=== PATIENT | female | born 1990 ===

== ENCOUNTER 2018-09-21 00:47 | Emergency (ER) | payer OTHER ==
[2018-09-21 01:08] VITALS: BMI 20.3
[2018-09-21 01:13] VITALS: RESP 18
[2018-09-21] MEDS ORDERED: Sodium Chloride 0.9% 1,000 ML IV STA (01:43)
--- NOTE | 2018-09-21 01:48 | ED PDOC ---
HPI: Abdomen Time Seen by Provider: 09/21/18 01:27 Chief Complaint (Nursing): Abdominal Pain Chief Complaint (Provider): Abdominal Pain History Per: Patient History/Exam Limitations: no limitations Onset/Duration Of Symptoms: Days Outside of [place] travel?: No Current Symptoms Are (Timing): Still Present Additional Complaint(s): 28 y/o female presents to the ED for evaluation of abdominal pain, onset 4 hours prior to arrival. Patient reports of having elective termination on 08/24 and has been experiencing continuous vaginal bleeding since. Patient reports bleeding is like her normal periods. Patient additionally reports of noticing bleeding began to be foul smelling approximately 2 days ago. Patient states she used a cream prescribed to her by her PMD used to treat a bacterial infection in the past. Patient reports of developing worsening abdominal pain associated with 2 episodes of vomiting, nausea and dizziness 4 hours prior to arrival. Patient states pain is radiating to the buttocks. Patient reports of attempting to go to her PMD's office earlier today but was unable to due to the closing office hours. Patient was instructed to make an appointment for further evaluation with PMD. However, due to pain patient presented here to be further evaluated. Otherwise, patient denies taking any medications prior to arrival. Of note, patient reports of having another elective termination in the past but further states current symptoms are different from previous termination. PMD: Scott Falcon Abnormal Vaginal Bleeding: Yes Past Medical History Reviewed: Historical Data, Nursing Documentation, Vital Signs Vital Signs: Last Vital Signs Temp 98.0 F 09/21/18 01:08 Pulse 83 09/21/18 01:08 Resp 18 09/21/18 01:08 BP 137/91 H 09/21/18 01:08 Pulse Ox 99 09/21/18 01:08 - Medical History PMH: No Chronic Diseases - Family History Family History: States: Unknown Family Hx - Allergies Allergies/Adverse Reactions: Allergies Allergy/AdvReac Type Severity Reaction Status Date / Time shellfish derived Allergy RASH Verified 09/21/18 01:08 Review of Systems ROS Statement: Except As Marked, All Systems Reviewed And Found Negative Gastrointestinal: Positive for: Nausea, Vomiting, Abdominal Pain Genitourinary Female: Positive for: Vaginal Bleeding Neurological: Positive for: Dizziness Physical Exam - Reviewed Nursing Documentation Reviewed: Yes Vital Signs Reviewed: Yes - Physical Exam Appears: Positive for: No Acute Distress, Uncomfortable Head Exam: Positive for: ATRAUMATIC, NORMOCEPHALIC Skin: Positive for: Normal Color, Warm, Dry Eye Exam: Positive for: Normal appearance Neck: Positive for: Normal, Painless ROM Cardiovascular/Chest: Positive for: Regular Rate, Rhythm. Negative for: Murmur Respiratory: Positive for: Normal Breath Sounds. Negative for: Respiratory Distress Gastrointestinal/Abdominal: Positive for: Soft, Tenderness (Suprapubic Tenderness) Pelvic Exam: Positive for: Other (Deferred) Extremity: Positive for: Normal ROM. Negative for: Deformity Neurologic/Psych: Positive for: Alert, Oriented. Negative for: Motor/Sensory Deficits - Laboratory Results Result Diagrams: 09/21/18 03:00 09/21/18 03:00 - ECG O2 Sat by Pulse Oximetry: 99 (RA) Pulse Ox Interpretation: Normal Medical Decision Making Medical Decision Making: Time: 142 Plan: -- Type and Screen -- BMP -- Beta-HCG, Quantitative -- CBC with differentials -- Sodium Chloride IV 1000 mls/hr -- Toradol 30 mg IVP -- Zofran Inj 4 mg IVP -- US Pelvis/Transvaginal Time: 318 US RESULTS Findings: Anteverted uterus measuring 8.9x5.6x6.6 cm. Normal cervical length measuring 3.3 cm. Empty uterus. Complex endometrial canal. Multiple simple cysts/follicles of the right ovary with the largest measuring 2.5 cm. Simple cyst of the left ovary measuring 1.3 cm. Impression: Complex heterogeneously a thickened endometrium. No evidence of intrauterine . Small simple cysts/follicles of the ovaries, uncomplicated. Maximum thickness of endometrium measures 11.2 mm. Electronically signed on Sep 21, 2018 3:19:07 AM EST by: Ruth Howell M.D., Certified by ABR, MSK, Neuroradiology [id number] Explained US findings with patient. Given return precautions such as weakness, dizziness, worsened pain/bleeding, or fever. Pt to follow up with active directory systems administrator in one week. Scribe Attestation: Documented by Ann Zambrano, acting as a scribe for Amparo Gann MD. Provider Scribe Attestation: All medical record entries made by the Scribe were at my direction and personally dictated by me. I have reviewed the chart and agree that the record accurately reflects my personal performance of the history, physical exam, medical decision making, and the department course for this patient. I have also personally directed, reviewed, and agree with the discharge instructions and di sposition. Disposition - Clinical Impression Clinical Impression: Vaginal bleeding - Disposition Disposition: Routine/Home Disposition Time: 04:30 Condition: IMPROVED Additional Instructions: Take Motrin or Tylenol for pain. Follow up with active directory systems administrator within one week. Return to the emergency department if symptoms worsen or if new symptoms develop. Forms: [facility] ([place]), [facility] ED School/Work Excuse Print Language: SA[place] TOME[place]
[2018-09-21 03:20] LABS: BASO % 0.4 % (0.0-2.0); EOS # 0.2 K/uL (0.0-0.7); EOS % 1.8 % (0.0-4.0); HEMOGLOBIN 11.6 g/dL (12.0-16.0); LYMPH # 1.2 K/uL (1.0-4.3); LYMPH % 11.1 % (20.0-40.0); MEAN CORPUSCULAR HEMOGLOBIN 32.1 pg (27.0-31.0); MEAN CORPUSCULAR HGB CONC 33.8 g/dL (33.0-37.0); MEAN PLATELET VOLUME 8.6 fl (7.2-11.7); MONO # 0.7 K/uL (0.0-0.8); MONO % 6.6 % (0.0-10.0); NEUT # 8.4 K/uL (1.8-7.0); NEUT % 80.1 % (50.0-75.0); RBC 3.62 Mil/uL (3.80-5.20); RED CELL DISTRIBUTION WIDTH 13.1 % (11.5-14.5); WHITE BLOOD COUNT 10.5 K/uL (4.8-10.8)
[2018-09-21 03:31] LABS: BLOOD UREA NITROGEN 13 mg/dl (7-17); CALCIUM 8.9 mg/dL (8.4-10.2); GFR NON-AFRICAN AMERICAN > 60
[2018-09-21 04:25] VITALS: BP 103/53; PULSE 76; TEMP 98.6
--- NOTE | 2018-09-21 11:03 | US ---
Date of service: 09/21/2018 HISTORY: look for retained products COMPARISON: None available. TECHNIQUE: Transvaginal FINDINGS: UTERUS: Measures 8.9 x 5.6 x 6.6 cm. Mildly heterogeneous. Consistent with status. No mass. ENDOMETRIUM: Measures 11 mm in diameter. No endometrial fluid. No evidence of retained products of conception. CERVIX: No cervical abnormality identified. RIGHT OVARY: Measures 3.6 x 2.9 x 2.6 cm. No solid mass. Normal flow. LEFT OVARY: Measures 4.0 x 2.5 x 2.1 cm. No solid mass. Normal flow. FREE FLUID: There is a moderate amount of free fluid in the pelvis. OTHER FINDINGS: None. IMPRESSION: Free fluid in the pelvis common nonspecific. Otherwise unremarkable examination. No evidence of retained products of conception. The preliminary findings for this examination were reported by [facility] at 3:19 a.m. on 09/21/2018. There is concurrence of this report with the preliminary findings.
[2018-09-24 11:27] VITALS: O2SAT 99
== END 2018-09-21 04:30 | disposition home or self-care (01) ==
LOC: H.ER 00:47
DX: N93.9 Abnormal uterine and vaginal bleeding, unspecified (principal); N83.291 Other ovarian cyst, right side
CPT/HCPCS: 76830; 76856; 80048; 81025; 84702; 85025; 86850; 86900; 96361; 96374; 96375; 99284; J1885; J2405; J7030